=== PATIENT | male | born 1995 | race Caucasian/White ===

== ENCOUNTER 2018-04-09 20:56 | Emergency (ER) | payer SELFPAY ==
--- NOTE | 2018-04-09 21:22 | EDPHY ---
H & P Stated Complaint: M1, SI - Personal History Current Tetanus Diphtheria and Acellular Pertussis (TDAP): Yes - Medical/Surgical History Hx Asthma: No Hx Chronic Respiratory Disease: No Hx Diabetes: No Hx Cardiac Disease: No Hx Renal Disease: No Hx Cirrhosis: No Hx Alcoholism: No Hx HIV/AIDS: No Hx Splenectomy or Spleen Trauma: No Other PMH: depression, anxiety. - Social History Smoking Status: Never smoked Time Seen by Provider: 04/09/18 21:08 HPI/ROS: CHIEF COMPLAINT: M1 suicidal ideation HISTORY OF PRESENT ILLNESS: 22-year-old male arrives via police on an M1 hold for complaints of suicidal ideation. He has been drinking large amounts of acute this evening, was involved in all argument with his girlfriend stated that he did not want to live anymore. Denies prior suicide attempt. Denies hallucination. Denies self-injurious behavior. Denies trauma or fall. PRIMARY CARE PROVIDER: REVIEW OF SYSTEMS: 10 systems reviewed and negative with the exception of the elements mentioned in the history of present illness PAST MEDICAL & SURGICAL HISTORY: No pertinent medical or surgical history SOCIAL HISTORY: Positive for Tequila this evening PHYSICAL EXAM (Prior to examination, patient consented to physical exam, hands were washed and my usual and customary physical exam procedures followed) 1) GENERAL: Well-developed, well-nourished, alert and oriented. Appears to be in no acute distress. Smells of alcohol 2) HEAD: Normocephalic, atraumatic 3) HEENT: [Pupils equal, round, reactive to light bilaterally. Sclera anicteric. 4) NECK: Full range of motion, no meningeal signs. 5) LUNGS: Clear auscultation bilaterally, no wheezes, no rhonchi, no retractions. 6) HEART: Regular rate and rhythm, no murmur, no heave, no gallop. 7) ABDOMEN: No guarding, no rebound, no focal tenderness, negative McBurney's, negative Ramos's, negative Rovsing's, negative peritoneal sign, 8) MUSCULOSKELETAL: Moving all extremities, no focal areas of tenderness, no obvious trauma. No peripheral edema or discoloration. 9) BACK: No CVA tenderness, no midline vertebral tenderness, no fluctuance, no step-off, no obvious trauma, no visual or palpable abnormality. 10) SKIN: No rash, no petechiae. 11) Psychiatric: Patient is oriented X 3, there is no agitation. DIFFERENTIAL DIAGNOSIS: In no particular order including but not limited to acute alcohol intoxication, suicidal ideation, homicidal ideation (Eri Louis) Constitutional: Initial Vital Signs Temperature (C) 36.9 C 04/09/18 20:59 Heart Rate 118 H 04/09/18 20:59 Respiratory Rate 18 04/09/18 20:59 Blood Pressure 121/84 H 04/09/18 20:59 O2 Sat (%) 97 04/09/18 20:59 O2 Delivery Mode Room Air Allergies/Adverse Reactions: No Known Allergies Allergy (Unverified 04/09/18 20:58) Home Medications: Medication Instructions Recorded Effexor Xr 04/09/18 SUBOXONE 8mg/2mg 04/09/18 Trileptal 04/09/18 Medical Decision Making ED Course/Re-evaluation: 9:20 p.m.: Patient on an M1 hold. Admits to large amounts of alcoholism. Will need to sober in the emergency department prior to mental health evaluation. Will check laboratory studies including alcohol level. Care of patient under supervision of secondary supervising physician Dr Conn with whom I discussed case. 10:40 p.m.: Patient's alcohol level is 185. He will need a a continue to sober in the emergency department. Midnight: Care turned over to Dr. Hailee Gibson (Eri Louis Wendy) PHYSICIAN DOCUMENTATION: The patient was evaluated and managed by the Physician [employer]. My co- signature indicates that I have reviewed this chart and I agree with the findings and plan of care as documented. I am the secondary supervising physician. 6:20 a.m.- Patient was seen by the mental health it disaster recovery manager. He was not suicidal and said that he did not make suicidal statements previously. However, his girlfriend was concerned because of his alcohol use. He does have a history of some opiate abuse and is being followed by a psychiatrist, is taking medication. He denies any suicidal ideation currently. He is sober. 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 ( Hailee Gibson) - Data Points Laboratory Results: Laboratory Results 04/09/18 21:54 04/09/18 21:54 04/09/18 04/09/18 04/09/18 21:54 21:54 21:20 WBC 4.66 10^3/uL 10^3/uL (3.80-9.50) RBC 5.36 10^6/uL 10^6/uL (4.40-6.38) Hgb 16.8 g/dL g/dL (13.7-17.5) Hct 48.1 % % (40.0-51.0) MCV 89.7 fL fL (81.5-99.8) MCH 31.3 pg pg (27.9-34.1) MCHC 34.9 g/dL g/dL (32.4-36.7) RDW 10.8 % L % (11.5-15.2) Plt Count 361 10^3/uL 10^3/uL (150-400) MPV 8.2 fL L fL (8.7-11.7) Neut % (Auto) 46.1 % % (39.3-74.2) Lymph % (Auto) 43.6 % % (15.0-45.0) [place] % (Auto) 7.1 % % (4.5-13.0) Eos % (Auto) 1.7 % % (0.6-7.6) Baso % (Auto) 1.3 % % (0.3-1.7) Nucleat RBC Rel Count 0.0 % % (0.0-0.2) Absolute Neuts (auto) 2.15 10^3/uL 10^3/uL (1.70-6.50) Absolute Lymphs (auto) 2.03 10^3/uL 10^3/uL (1.00-3.00) Absolute Monos (auto) 0.33 10^3/uL 10^3/uL (0.30-0.80) Absolute Eos (auto) 0.08 10^3/uL 10^3/uL (0.03-0.40) Absolute Basos (auto) 0.06 10^3/uL 10^3/uL (0.02-0.10) Absolute Nucleated RBC 0.00 10^3/uL 10^3/uL (0-0.01) Immature Gran % 0.2 % % (0.0-1.1) Immature Gran # 0.01 10^3/uL 10^3/uL (0.00-0.10) Sodium 139 mEq/L mEq/L (135-145) Potassium 4.1 mEq/L mEq/L (3.5-5.2) Chloride 102 mEq/L mEq/L (97-110) Carbon Dioxide 24 mEq/l mEq/l (22-31) Anion Gap 13 mEq/L mEq/L (6-14) BUN 8 mg/dL mg/dL (7-23) Creatinine 0.7 mg/dL mg/dL (0.7-1.3) Estimated GFR > 60 Glucose 91 mg/dL mg/dL (70-100) Calcium 10.0 mg/dL mg/dL (8.5-10.4) Salicylates < 1.0 mg/dL L mg/dL (2.0-20.0) Urine Opiates Screen NEGATIVE (NEGATIVE) Acetaminophen < 10 mcg/mL L mcg/mL (10-30) Urine Barbiturates NEGATIVE (NEGATIVE) Ur Phencyclidine Scrn NEGATIVE (NEGATIVE) Ur Amphetamine Screen NEGATIVE (NEGATIVE) U Benzodiazepines Scrn NON-NEGATIVE H (NEGATIVE) Urine Cocaine Screen NEGATIVE (NEGATIVE) U Marijuana (THC) Screen NON-NEGATIVE H (NEGATIVE) Ethyl Alcohol 185 mg/dL H mg/dL (0-10) Departure - Departure Disposition: Home, Routine, Self-Care Clinical Impression: Alcohol intoxication Qualifiers: Complication of substance-induced condition: with unspecified complication Qualified Code(s): F10.929 - Alcohol use, unspecified with intoxication, unspecified Condition: Good Instructions: At-Risk Alcohol Use (ED) Referrals: [facility] [Other] - As per Instructions Stand Alone Forms: Work Excuse
[2018-04-09 22:01] LABS: PLATELET COUNT 361 10^3/uL (150-400)
[2018-04-10 06:05] VITALS: BP 152/93
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
--- NOTE | 2018-04-10 07:55 | ASMTTCLDSP ---
TLC Discharge Disposition Disposition: Answers: Discharge If Answers: Yes DISCHARGED: Patient/family given suicide hotline info & [facility] brochure? Disposition Notes: Notes: Pt stated commitment or ability to keep self safe, denied thoughts of self harm or harm to others. Pt expressed a desire to f/u with his psychiatrist, Shane Morin MD. Pt was given local hotline information and [facility] brochure After an Attempt. Discharge Concerns/Recommendations: Notes: In consultation with [facility] ED physician, Hailee Gibson MD, Dr. Delgadillo concurred that pt does not appear to meet 27-65 criteria requiring psychiatric hospitalization as pt does not appear to be an imminent risk of harm to self/others/gravely disabled due to a mental illness condition. Dr. Gibson provided verbal order read back vacating M1 hold at 0600 hrs. Was patient given the Answers: Not applicable Inpatient Behavioral Health Prohibited Belongings List while in the ED? Psychiatrist vacating M1 Hailee Gibson MD Hold: Date and time M1 hold 04/10/2018 06:00 AM vacated (time format is hh:mm): Type of Hold: Answers: M1/72-hour Hold Hold initiated by: Answers: Police Date Signed: 04/10/2018 07:54 AM Electronically Signed By:Andrew Truong
== END 2018-04-10 06:33 | disposition home or self-care (01) ==
DX: F10.929 Alcohol use, unspecified with intoxication, unspecified (principal)
CPT/HCPCS: 80305; G0480